=== PATIENT | male | born 1935 | race Hispanic/Latino ===

== ENCOUNTER 2020-09-06 11:43 | Emergency (ER) | payer MEDICARE ==
[2020-09-06 12:28] LABS: #Basophils 0.1 10x3/uL (0.0-0.2); #Eosinphils 0.4 10x3/uL (0.0-0.5); #Monocytes 0.8 10x3/uL (0.0-1.1); #Neutrophils 5.6 10x3/uL (1.5-8.4); %Basophils 0.8 % (0.0-2.0); %Lymphocytes 8.3 % (18.0-47.0); %Monocytes 10.7 % (0.0-10.0); %Neutrophils 74.8 % (40.0-75.0); Hemoglobin 11.2 g/dL (13.5-17.5); Mean Corpuscular HGB CONC 32.1 g/dL (32.0-36.0); Mean Corpuscular Hemoglobin 29.8 pg (27.0-33.0); Mean Corpuscular Volume 92.8 fl (81.2-95.1); Mean Platelet Volume 10.6 fl (7.4-10.4); Platelet Count 225 10x3/uL (150-450); RBC Distribution Width 15.9 % (11.5-14.5); Red Blood Cell (RBC) Count 3.76 10x6/uL (4.32-5.72); White Blood Cell (WBC) Count 7.5 10x3/uL (3.5-10.5)
[2020-09-06 12:45] LABS: ALT (SGPT) 16 U/L (8-55); AST (SGOT) 25 U/L (5-34); Albumin 3.9 g/dL (3.4-4.8); Alkaline Phosphatase 79 U/L (40-110); Anion Gap 14 mmol/L (10-20); BUN (Urea Nitrogen) 19 mg/dL (8.4-25.7); Bilirubin, Total 0.5 mg/dL (0.2-1.2); Calc. Creatinine Clearance 0 mL/min (70-130); Carbon Dioxide 24 mmol/L (23-31); Chloride 108 mmol/L (98-107); Glucose 66 mg/dL (83-110); Potassium 3.9 mmol/L (3.5-5.1); Protein, Total 7.9 g/dL (5.8-8.1); Sodium 142 mmol/L (136-145)
== END 2020-09-06 13:40 | disposition home or self-care (01) ==
LOC: CSHERS 11:43
DX: E16.2 Hypoglycemia, unspecified (principal)
CPT/HCPCS: 36416; 70450; 71045; 80053; 84484; 85025; 93005; 94640; J7620

== ENCOUNTER 2024-12-29 19:51 | Emergency (ER) | payer OTHER ==
[~2024-12-29 19:51] MED LIST: Iopamidol 300 61% 100 ML VIAL FS ONE
[2024-12-29 20:09] LABS: #Basophils 0.07 10x3/uL (0.0-0.2); #Eosinophils 0.22 10x3/uL (0.0-0.5); #Monocytes 0.47 10x3/uL (0.0-1.1); #Neutrophils 4.10 10x3/uL (1.5-8.4); %Basophils 1.1 % (0.0-2.0); %Eosinophils 3.5 % (0.0-6.0); %Lymphocytes 23.0 % (18.0-47.0); %Monocytes 7.4 % (0.0-10.0); %Neutrophils 64.7 % (40.0-75.0); Hematocrit 32.9 % (38.8-50.0); Hemoglobin 11.4 g/dL (13.5-17.5); Mean Corpuscular Hemoglobin 31.0 pg (27.0-33.0); Mean Corpuscular Volume 89.4 fL (81.2-95.1); Platelet Count 214 10x3/uL (150-450); Red Blood Cell (RBC) Count 3.68 10x6/uL (4.32-5.72); White Blood Cell (WBC) Count 6.34 10x3/uL (3.5-10.5)
[2024-12-29 20:24] LABS: ALT (SGPT) 8 U/L (Less than 45); AST (SGOT) 18 U/L (11-34); Albumin 3.6 g/dL (3.1-4.5); Alkaline Phosphatase 63 U/L (40-110); Anion Gap 10 mmol/L (10-20); BUN (Urea Nitrogen) 20 mg/dL (8.4-25.7); Bilirubin, Total 0.6 mg/dL (0.3-1.2); Calc. Creatinine Clearance 0 mL/min (70-130); Calcium 8.7 mg/dL (7.8-10.44); Carbon Dioxide 25 mmol/L (23-31); Chloride 109 mmol/L (98-107); Globulin 3.7 g/dL (2.4-3.5); Glucose 189 mg/dL (83-110); Lipase 13 U/L (8-78); Magnesium 2.0 mg/dL (1.6-2.6); Potassium 3.6 mmol/L (3.5-5.1); Sodium 140 mmol/L (136-145)
[2024-12-29 20:28] LABS: Troponin I 0.012 ng/mL (< 0.028)
[2024-12-29 22:48] LABS: Glucose, Urine (Dipstick) 50 mg/dL (Negative); Leukocyte 500 (Negative); Protein, Urine (Dipstick) 100 mg/dl (Neg-Trace); Specific Gravity, Urine 1.015 (1.005-1.030)
[2024-12-29 22:56] LABS: Bacteria/HPF 3+ HPF (None Seen); CAUTI Indications for Culture Pelvic or flank pain; RBC/HPF 0-3 HPF (0-3); WBC/HPF 21-50 HPF (0-3)
[2024-12-29 22:58] LABS: Urine Culture Reflex Yes Yes
[2024-12-29 23:30] LABS: Troponin I Less than 0.010 ng/mL (< 0.028)
[2024-12-29] MEDS ORDERED: cefTRIAXone (ROCEPHIN) 2 GM VIAL ONE (23:46)
[2024-12-29] MEDS ORDERED: hydrALAZINE 20 MG/ML VIAL ONE (23:51)
== END 2024-12-30 00:53 | disposition home or self-care (01) ==
LOC: CSHERS 19:51
DX: N39.0 Urinary tract infection, site not specified (principal); E11.9 Type 2 diabetes mellitus without complications; I10 Essential (primary) hypertension; I25.10 Atherosclerotic heart disease of native coronary artery without angina pectoris; J44.9 Chronic obstructive pulmonary disease, unspecified
CPT/HCPCS: 71045; 74177; 80053; 81001; 83690; 83735; 84484 ×2; 85025; 87086; 93005; 96365; 96375; 99285; J0360; J0696; 36415; 87077; Q9967